=== PATIENT | female | born 1955 | race African-American/Black ===

== ENCOUNTER 2019-05-04 05:35 | Emergency (ER) | payer OTHER ==
[2019-05-04 05:58] VITALS: BMI 35.2
[2019-05-04] MEDS ORDERED: SODIUM CHLORIDE 0.9% 500 ML INFUS.BAG IV ONE (06:13)
[2019-05-04] MEDS ORDERED: morphine CARPU-JECT 2 MG/1 ML DISP.SYRIN IVPUSH ONE (06:13)
[2019-05-04] MEDS ORDERED: morphine SULFATE 4 MG/ML VIAL ONE (06:17)
--- NOTE | 2019-05-04 06:23 | PDOC ---
History of Present Illness - General Chief Complaint: Pain Stated Complaint: ABDOMINAL PAIN Time Seen by Provider: 05/04/19 06:12 History Source: Patient, Family Exam Limitations: No Limitations, Language Barrier, Other (pt speaks foreign language; kids translating) - History of Present Illness Is this a multiple visit Asthma Patient?: No Timing/Duration: 4-6 hours Severity: moderate Past History - Travel Traveled outside of the country in the last 30 days: No Close contact w/someone who was outside of country & ill: No - Past Medical History Allergies/Adverse Reactions: Allergies Allergy/AdvReac Type Severity Reaction Status Date / Time No Known Allergies Allergy Verified 05/04/19 05:49 Home Medications: Ambulatory Orders Omeprazole Magnesium [Prilosec Otc] 20 mg PO DAILY 05/04/19 Ranitidine [Zantac -] 150 mg PO BID #14 tablet 05/04/19 Sucralfate [Carafate -] 1 gm PO QID #24 tablet 05/04/19 - Psycho Social/Smoking Cessation Hx Smoking History: Never smoked Hx Alcohol Use: No Drug/Substance Use Hx: No Review of Systems - Review of Systems Able to Perform ROS?: Yes Is the patient limited Lao proficient: Yes Constitutional: No: Symptoms Reported, See HPI, Chills, Diaphoresis, Fever, Loss of Appetite, Malaise, Night Sweats, Weakness, Weight Stable, Unintentional Wgt. Loss, Unexplained wgt Loss, Other HEENTM: No: Symptoms Reported, See HPI, Eye Pain, Blurred Vision, Tearing, Recent change in vision, Double Vision, Cataracts, Ear Pain, Ocular Prothesis, Ear Discharge, Nose Pain, Nose Congestion, Tinnitus, Nose Bleeding, Hearing Loss , Throat Pain, Throat Swelling, Mouth Pain, Dental Problems, Difficulty Swallowing, Mouth Swelling, Other Respiratory: No: Symptoms reported, See HPI, Cough, Orthopnea, Shortness of Breath, SOB with Exertion, SOB at Rest, Stridor, Wheezing, Productive cough, Hemoptysis, Other Cardiac (ROS): No: Symptoms Reported, See HPI, Chest Pain, Edema, Irregular Heart Rate, Lightheadedness, Palpitations, Syncope, Chest Tightness, Other ABD/GI: Yes: Constipated, Abdominal cramping. No: Symptoms Reported, See HPI, Abdominal Distended, Abd. Pain w/ defecation, Blood Streaked Bowels, Diarrhea, Difficulty Swallowing, Nausea, Poor Appetite, Poor Fluid Intake, Rectal Bleeding , Vomiting, Indigestion, Tarry Stools, Other : No: Symptoms Reported, See HPI, Burning, Dysuria, Discharge, Frequency, Flank Pain, Hematuria, Incontinence, Pain, Urgency, Testicular Mass, Testicular Swelling, Lesions, Testicular Pain, Other Musculoskeletal: No: Symptoms Reported, See HPI, Back Pain, Gout, Joint Pain, Joint Swelling, Muscle Pain, Muscle Weakness, Neck Pain, Joint Stiffness, Other Integumentary: No: Symptoms Reported, See HPI, Bruising, Change in Color, Change in Hair/Nails, Dryness, Erythema, Flushing, Lesions, Lumps, Pallor, Pruritus, Rash, Sweating, Other Neurological: No: Symptoms reported, See HPI, Headache, Numbness, Paresthesia, Pre-Existing Deficit, Seizure, Tingling, Tremors, Weakness, Unsteady Gait, Ataxia, Dizziness, Other Psychiatric: No: Anxiety, Depression, Frequent Crying, Stressors, Sleep Pattern Change, Emotional Problems, Mood Swings, Change in Appetite, Other Endocrine: No: Symptoms Reported, See HPI, Excessive Sweating, Flushing, Intolerance to Cold, Intolerance to Heat, Increased Hunger, Increased Thirst, Increased Urine, Unexplained Weight Gain, Unexplained Weight Loss, Change in Weight, Other Hematologic/Lymphatic: No: Symptoms Reported, See HPI, Anemia, Blood Clots, Easy Bleeding, Easy Bruising, Bleeding Diathesis, Lymph Node Abnormalities, Swollen Glands, Other *Physical Exam - Vital Signs Last Vital Signs Temp Pulse Resp BP Pulse Ox 97.1 F L 71 20 147/95 98 05/04/19 05:35 05/04/19 05:35 05/04/19 05:35 05/04/19 05:35 05/04/19 05:35 - Physical Exam General Appearance: Yes: Nourished, Appropriately Dressed, Moderate Distress HEENT: positive: EOMI, BRAXTON, Normal ENT Inspection, Pharynx Normal. negative: TMs Normal Neck: positive: Tender, Supple Respiratory/Chest: positive: Lungs Clear, Respiratory Distress Cardiovascular: positive: Regular Rate, S1, S2 Gastrointestinal/Abdominal: positive: Soft, Decreased BS, Tenderness. negative : Organomegaly, Pulsatile Mass, Distended, Guarding, Rebound Musculoskeletal: positive: Normal Inspection. negative: CVA Tenderness Extremity: positive: Normal Inspection Integumentary: positive: Normal Color, Dry, Warm Neurologic: positive: property management intern II-XII NML intact, Fully Oriented, Alert ED Treatment Course - LABORATORY CBC & Chemistry Diagram: 05/04/19 06:24 05/04/19 06:24 - RADIOLOGY Radiology Studies Ordered: Category Date Time Status ABDOMEN FLAT & UPRIGHT [RAD] Stat Radiology 05/04/19 06:19 Ordered CHEST PA & LAT [RAD] Stat Radiology 05/04/19 06:19 Ordered Medical Decision Making - Medical Decision Making 05/04/19 06:23 abd is soft NT ND; Pt has no fever; she ate chicken last night. Her pain is diffuse. Pt has no flank pain and she has no dysuria, no vomiting and no diarrhea. Pt signed out to Dr. Go and the day team; all results pending Discharge - Discharge Information Problems reviewed: Yes Clinical Impression/Diagnosis: GERD (gastroesophageal reflux disease) Condition: Improved Disposition: HOME - Additional Discharge Information Prescriptions: Ranitidine [Zantac -] 150 mg PO BID #14 tablet Sucralfate [Carafate -] 1 gm PO QID #24 tablet - Follow up/Referral Referrals: Richie Barajas MD [Primary Care Provider] - Boris Frias DO [Staff Physician] - - Patient Discharge Instructions Patient Printed Discharge Instructions: DI for Gastroesophageal Reflux Disease (GERD) Additional Instructions: Return to the emergency department immediately with ANY new, persistent or worsening symptoms including any recurrent abdominal pain, fevers, chills, inability to tolerate oral intake or any other concerns. Stay away from alcohol, spicy foods, caffeine, acidic/sour foods. Take maalox if you have burning for relief. Continue using zantac every night for one week. You MUST call and follow up with your doctor and public health analyst within 5 days for further evaluation of your symptoms. Your emergency department visit is not complete without a followup with your doctor for reevaluation. Results were discussed with you. Please make sure your doctor reviews the results of your emergency evaluation. Print Language: SYRIAC - Post Discharge Activity
[2019-05-04 06:54] LABS: BASO % 0.2 % (0-2.0); EOS % 0.1 % (0-4.5); HEMATOCRIT 38.6 % (32.4-45.2); HEMOGLOBIN 12.5 GM/dL (10.7-15.3); LYMPH % 9.2 % (8-40); MCH 26.9 pg (25.7-33.7); MCHC 32.4 g/dl (32.0-36.0); MEAN PLT VOLUME 7.7 fl (7.5-11.1); MONO % 1.9 % (3.8-10.2); NEUT % 88.6 % (42.8-82.8); PLATELET COUNT 280 K/MM3 (134-434); RBC 4.65 M/mm3 (3.60-5.2); RDW 13.5 % (11.6-15.6); WHITE BLOOD COUNT 7.6 K/mm3 (4.0-10.0)
[2019-05-04 07:09] LABS: INR 1.08 (0.83-1.09); PROTHROMBIN TIME (PATIENT) 12.8 SEC (9.7-13.0)
[2019-05-04 07:27] LABS: ALBUMIN 3.9 g/dl (3.4-5.0); ALK PHOS 73 U/L (45-117); ANION GAP 6 MMOL/L (8-16); BILIRUBIN,TOTAL 0.3 mg/dL (0.2-1); BLOOD UREA NITROGEN 10.8 mg/dL (7-18); CALCIUM 8.7 mg/dL (8.5-10.1); CHLORIDE 100 mmol/L (98-107); CO2 31 mmol/L (21-32); CREATININE 0.8 mg/dL (0.55-1.3); GLUCOSE,RANDOM 179 mg/dL (74-106); SGOT/AST 22 U/L (15-37); SGPT/ALT 25 U/L (13-61); SODIUM 137 mmol/L (136-145); TOT PROT 7.8 g/dl (6.4-8.2)
--- NOTE | 2019-05-04 07:47 | PDOC ---
*Physical Exam - Vital Signs Last Vital Signs Temp Pulse Resp BP Pulse Ox 97.1 F L 71 20 147/95 98 05/04/19 05:35 05/04/19 05:35 05/04/19 05:35 05/04/19 05:35 05/04/19 05:35 ED Treatment Course - LABORATORY CBC & Chemistry Diagram: 05/04/19 06:24 05/04/19 06:24 - ADDITIONAL ORDERS Additional order review: Laboratory Results 05/04/19 05/04/19 05/04/19 06:24 06:24 06:24 PT with INR 12.80 INR 1.08 Sodium 137 Potassium 4.0 Chloride 100 Carbon Dioxide 31 Anion Gap 6 L BUN 10.8 Creatinine 0.8 Est GFR (CKD-EPI)AfAm 90.30 Est GFR (CKD-EPI)NonAf 77.91 Random Glucose 179 H Calcium 8.7 Total Bilirubin 0.3 AST 22 ALT 25 Alkaline Phosphatase 73 Total Protein 7.8 Albumin 3.9 Blood Type O POSITIVE Antibody Screen Negative 05/04/19 06:24 RBC 4.65 MCV 83.0 MCHC 32.4 RDW 13.5 MPV 7.7 Neutrophils % 88.6 H Lymphocytes % 9.2 Monocytes % 1.9 L Eosinophils % 0.1 Basophils % 0.2 - Medications Given in the ED: ED Medications Discontinued Medications Generic Name Dose Route Start Last Admin Trade Name [place] PRN Reason Stop Dose Admin Morphine Sulfate 2 mg 05/04/19 06:13 05/04/19 06:25 Morphine Injection - IVPUSH 05/04/19 06:14 2 mg ONCE ONE Administration Sodium Chloride 1,000 ml 05/04/19 06:13 05/04/19 06:27 Normal Saline - IV 05/04/19 06:14 1,000 ml ONCE ONE Administration Medical Decision Making - Medical Decision Making 05/04/19 07:47 The patient was signed out to me from Dr. Tejada at approximately 7 AM 63y F hx of acid reflux presens with onset of mid epigastric burning/pressure around 1am - pt was fine yesterday without any other symptoms. The patient had one episode of vomiting that was yellow without signs of coffee-ground emesis, the patient denies any fever, chills, diarrhea, melena, chest pain, shortness of breath, diaphoresis. The patient had a similar episode approximately 1 week ago where she went to [facility] she was treated with medications and she felt better when she went home. The patient does endorse this feels similar to her prior acid reflux. exam: abd: soft, minimally tender epigastrium, no rebound or guarding, negative Ramirez 's, negative McBurney, no CVA tenderness Suspect acid reflux will obtain labs to rule out pancreatitis, doubt ACS will obtain blood work, ekg nonischemic will give pepcid/malox will reassess 05/04/19 12:01 p feeling improved Abdomen is reassessed and is soft and nontender pa[facility] ct wih outpt management and GI f I discussed the physical exam findings, ancillary test results and final diagnoses with the patient. I answered all of the patient's questions. The patient was satisfied with the care received and felt comfortable with the discharge plan and treatment plan. The patient will call their primary care physician within 24 hours to arrange follow-up and will return to the Emergency Department with any new, persistent or worsening symptoms. Discharge - Discharge Information Problems reviewed: Yes Condition: Improved Disposition: HOME - Admission No - Follow up/Referral Referrals: Boris Frias DO [Staff Physician] - Richie Barajas MD [Primary Care Provider] - - Patient Discharge Instructions Patient Printed Discharge Instructions: DI for Gastroesophageal Reflux Disease (GERD) Additional Instructions: Return to the emergency department immediately with ANY new, persistent or worsening symptoms including any recurrent abdominal pain, fevers, chills, inability to tolerate oral intake or any other concerns. Stay away from alcohol, spicy foods, caffeine, acidic/sour foods. Take maalox if you have burning for relief. Continue using zantac every night for one week. You MUST call and follow up with your doctor and house designer within 5 days for further evaluation of your symptoms. Your emergency department visit is not complete without a followup with your doctor for reevaluation. Results were discussed with you. Please make sure your doctor reviews the results of your emergency evaluation. Print Language: SETSWA[place] - Post Discharge Activity
[2019-05-04] MEDS ORDERED: MAG HYDROX/AL HYDROX/SIMETH -MYLANTA- ORAL SUSPENSION PO ONE (07:57)
[2019-05-04] MEDS ORDERED: FAMOTIDINE 20 MG/50 ML IVPB 20 MG in PREMIX 50 IVPB ONE (07:57)
[2019-05-04 08:20] LABS: LIPASE 75 U/L (73-393)
[2019-05-04] MEDS ORDERED: FAMOTIDINE 20 MG/50 ML IVPB 20 MG/50 ML MG IVPB ONE (08:20)
[2019-05-04] MEDS ORDERED: MAG HYDROX/AL HYDROX/SIMETH 30 ML UNIT-DOSE CUP ONE (08:20)
[2019-05-04 08:21] LABS: PH,URINE 8.5 (5.0-8.0); URINE APPEARANCE Clear; URINE BILIRUBIN Negative (NEGATIVE); URINE COLOR Yellow; URINE GLUCOSE (UA) Trace (NEGATIVE); URINE KETONE Negative (NEGATIVE); URINE LEUK ESTERASE Negative (NEGATIVE); URINE NITRITE Negative (NEGATIVE); URINE PROTEIN Negative (NEGATIVE)
[2019-05-04] MEDS ORDERED: SUCRALFATE 1 GM TABLET (FP) PO ONE (09:24)
[2019-05-04] MEDS ORDERED: METOCLOPRAMIDE HCL INJECTION 10 MG/2 ML VIAL IVPUSH ONE (09:24)
[2019-05-04] MEDS ORDERED: SUCRALFATE 1 GM TABLET (FP) ONE (10:12)
[2019-05-04] MEDS ORDERED: METOCLOPRAMIDE HCL INJECTION 10 MG/2 ML VIAL ONE (10:12)
--- NOTE | 2019-05-04 10:15 | EKG ---
Test Reason : Blood Pressure : / mmHG Vent. Rate : 077 BPM Atrial Rate : 077 BPM P-R Int : 168 ms QRS Dur : 094 ms QT Int : 406 ms P-R-T Axes : 070 016 016 degrees QTc Int : 459 ms NORMAL SINUS RHYTHM LATERAL INFARCT , AGE UNDETERMINED ABNORMAL ECG NO PREVIOUS ECGS AVAILABLE Confirmed by CORNELL VALDERRAMA, TRISH ([id number]) on 05/04/2019 10:14:41 AM Referred By: Confirmed By:TRISH SARABIA MD
[2019-05-04 11:06] VITALS: BP 125/75; PULSE 81; TEMP 98.7
== END 2019-05-04 12:29 | disposition home or self-care (01) ==
LOC: JER 05:35
PROC: 3E033GC Introduction of Other Therapeutic Substance into Peripheral Vein, Percutaneous Approach (ICD-10-PCS; principal; 2019-05-04)
PROC: 3E033GC Introduction of Other Therapeutic Substance into Peripheral Vein, Percutaneous Approach (ICD-10-PCS; 2019-05-04)
DX: K21.9 Gastro-esophageal reflux disease without esophagitis (principal)
CPT/HCPCS: 36415; 71046-TC-FY; 74019-TC-FY; 80053; 81003; 82550; 83690; 84484; 85025; 85610; 86850; 86900; 86901; 93005; 93010; 99284-25

== ENCOUNTER 2022-06-27 10:02 | Emergency (ER) | payer OTHER ==
[2022-06-27 10:28] VITALS: RESP 18; TEMP 98.9; BMI 31.3
[2022-06-27 11:13] VITALS: BP 148/62; PULSE 73
[2022-06-27] MEDS ORDERED: ACETAMINOPHEN 1000 MG/100 ML BAG IVPB ONE (11:29)
[2022-06-27] MEDS ORDERED: METOCLOPRAMIDE HCL INJECTION 10 MG/2 ML VIAL IVPUSH ONE (11:29)
[2022-06-27] MEDS ORDERED: METOCLOPRAMIDE HCL INJECTION 10 MG/2 ML VIAL ONE (11:35)
[2022-06-27] MEDS ORDERED: ACETAMINOPHEN INJECTION 100 ML IVPB ONE (11:35)
[2022-06-27 12:04] LABS: BASO % 0.5 % (0-2.0); HEMOGLOBIN 13.4 GM/dL (10.7-15.3); LYMPH % 25.8 % (8-40); MCH 26.5 pg (25.7-33.7); MEAN PLT VOLUME 8.1 fl (7.5-11.1); MONO % 6.4 % (3.8-10.2); NEUT % 66.3 % (42.8-82.8); PLATELET COUNT 262 10^3/uL (134-434); RBC 5.06 M/mm3 (3.60-5.2); RDW 13.2 % (11.6-15.6); WHITE BLOOD COUNT 4.2 K/mm3 (4.0-10.0)
[2022-06-27 12:30] LABS: ALBUMIN 3.6 g/dl (3.4-5.0); CALCIUM 9.6 mg/dL (8.5-10.1)
[2022-06-27 12:31] LABS: BLOOD UREA NITROGEN 7.9 mg/dL (7-18)
[2022-06-27 12:34] LABS: CREATININE 0.6 mg/dL (0.55-1.3)
[2022-06-27 12:35] LABS: BILIRUBIN,TOTAL 0.3 mg/dL (0.2-1); TOT PROT 7.4 g/dl (6.4-8.2)
[2022-06-27 12:58] LABS: ERYTHROCYTE SEDIMENTATION RATE 59 mm/hr (0-30)
== END 2022-06-27 14:33 | disposition home or self-care (01) ==
LOC: JER 10:02
PROC: 3E0333Z Introduction of Anti-inflammatory into Peripheral Vein, Percutaneous Approach (ICD-10-PCS; principal; 2022-06-27)
PROC: 3E033GC Introduction of Other Therapeutic Substance into Peripheral Vein, Percutaneous Approach (ICD-10-PCS; 2022-06-27)
PROC: 3E033GC Introduction of Other Therapeutic Substance into Peripheral Vein, Percutaneous Approach (ICD-10-PCS; 2022-06-27)
DX: R51.9 Headache, unspecified (principal)
CPT/HCPCS: 36415; 70450-TC; 80053; 85025; 85651; 93005; 93010; 96374; 96375; 99285-25

== ENCOUNTER 2024-03-04 22:52 | Emergency (ER) | payer OTHER ==
[2024-03-04 23:00] VITALS: BP 137/83; PULSE 80; RESP 18; TEMP 98.3; BMI 32.7
[2024-03-05] MEDS: SODIUM CHLORIDE 0.9% 500 ML INFUS.BAG IV ONE (00:09)
[2024-03-05] MEDS ORDERED: METOCLOPRAMIDE HCL INJECTION 10 MG/2 ML VIAL ONE (00:11)
[2024-03-05] MEDS ORDERED: ACETAMINOPHEN INJECTION 100 ML IVPB ONE (00:11)
[2024-03-05] MEDS: ACETAMINOPHEN 1000 MG/100 ML BAG IVPB ONE (00:26)
[2024-03-05 00:36] LABS: BASO % 0.4 % (0-2.0); HEMATOCRIT 38.3 % (32.4-45.2); HEMOGLOBIN 12.7 GM/dL (10.7-15.3); MCH 27.2 pg (25.7-33.7); MCHC 33.1 g/dl (32.0-36.0); MEAN CELL VOLUME 82.1 fl (80-96); MEAN PLT VOLUME 7.4 fl (7.5-11.1); MONO % 6.5 % (3.8-10.2); NEUT % 77.1 % (42.8-82.8); PLATELET COUNT 279 10^3/uL (134-434); RBC 4.67 M/mm3 (3.60-5.2); RDW 13.2 % (11.6-15.6); WHITE BLOOD COUNT 6.3 K/mm3 (4.0-10.0)
[2024-03-05] MEDS: METOCLOPRAMIDE HCL INJECTION 10 MG/2 ML VIAL IVPUSH ONE (00:40)
[2024-03-05 00:59] LABS: POTASSIUM 4.4 mmol/L (3.5-5.1)
[2024-03-05 01:02] LABS: ALBUMIN 3.6 g/dl (3.4-5.0); BLOOD UREA NITROGEN 11.8 mg/dL (7-18); CALCIUM 9.3 mg/dL (8.5-10.1)
[2024-03-05 01:03] LABS: MAGNESIUM 1.8 mg/dL (1.8-2.4)
[2024-03-05 01:06] LABS: CREATININE 0.8 mg/dL (0.55-1.3)
[2024-03-05 01:07] LABS: BILIRUBIN,TOTAL 0.2 mg/dL (0.2-1); TOT PROT 7.7 g/dl (6.4-8.2)
== END 2024-03-05 01:51 | disposition home or self-care (01) ==
LOC: JER 22:52
PROC: 3E033GC Introduction of Other Therapeutic Substance into Peripheral Vein, Percutaneous Approach (ICD-10-PCS; principal; 2024-03-05)
PROC: 3E033NZ Introduction of Analgesics, Hypnotics, Sedatives into Peripheral Vein, Percutaneous Approach (ICD-10-PCS; 2024-03-05)
DX: R51.9 Headache, unspecified (principal)
CPT/HCPCS: 36415; 80053; 83735; 85025; 99284-25; J0131